=== PATIENT | male | born 1960 | race Caucasian/White ===

== ENCOUNTER → 2024-12-23 06:56 | Outpatient (REF) | payer OTHER, SELFPAY | LOC: PAVMRI 06:56 | PROVIDERS: ATTENDING PHYSICIAN Specialist; FAMILY PHYSICIAN Internal Medicine | DX: M25.562 Pain in left knee (principal); M17.12 Unilateral primary osteoarthritis, left knee | CPT/HCPCS: 73721 ==

== ENCOUNTER 2025-03-23 16:51 | Inpatient (IN) | payer OTHER, SELFPAY ==
[2025-03-23] VITALS (9 sets, daily range): BP systolic 97–154; BP diastolic 66–95; PULSE 90–104; BMI 33.9
[2025-03-23 13:58] LABS: Hematocrit 37.9 % (39.0-52.0); Hemoglobin 13.2 g/dL (13.0-18.0); Mean Corp Hgb Conc. 34.8 g/dL (33.0-37.0); Mean Corpuscular Volume 91.5 fL (80.0-94.0); Nucleated Red Blood Cells % 0 % (-); Platelet Count 213 10^3/uL (130-400); Red Cell Dist. Width 12.1 % (11.5-14.5)
[2025-03-23 14:10] LABS: ALT (SGPT) 60 U/L (0-50); AST (SGOT) 53 U/L (17-59); Albumin 4.3 g/dl (3.5-5.0); Alkaline Phosphatase 61 U/L (38-126); Blood Urea Nitrogen 42 mg/dl (9-20); Calcium 9.8 mg/dl (8.4-10.2); Carbon Dioxide 25 mmol/L (22-30); Chloride 102 mmol/L (98-107); Estimated Creatinine Clearance 53 ml/min; Glucose 90 mg/dl (70-99); Potassium 4.6 mmol/L (3.5-5.1); Sodium 135 mmol/L (135-145); Total Protein 7.7 g/dl (6.3-8.2); eGFR 44.74
--- NOTE | 2025-03-23 14:30 | ED.GENMED ---
History of Present Illness
General
Chief Complaint: Heart Rate Problem
Source: patient, records and spouse
Exam Limitations: none
Time Seen by Provider: 03/23/25 14:11
Nursing documentation reviewed up to this point in time: agreed with
History of Present Illness
History of Present Illness:
64 male presents with fatigue, dizziness, low blood pressure since yesterday-watch that his heart rate was slow but here he is in fast A-fib history of PAF on Eliquis has missed about 5 doses in the past month, also on metoprolol for an JANESSA
inhibitor he believes he has not had his metoprolol for some time he is unsure if there is a mistake at the pharmacy, recently started a GLP-1, and on for a few months has lost some weight he has had stents x 2 states he had indigestion and states
his symptoms are different has had some slow urinary stream, but no decreased urination no fevers no flank pain no chest pain no shortness of breath
Past History
Past History
ED Past Medical History: Arrthythmia, CAD and HTN
Social History
Tobacco: Smoker
Alcohol: Occasional
Drug: None
Personal:
Living: with family
Employment: Employed
Review of Systems
Review of Systems
All Other Systems: Not applicable
Constitutional: Reports fatigue; Denies fever
EENT: Reports no symptoms
Respiratory: Reports no symptoms
Cardiac: Reports palpitations
ABD/GI: Reports no symptoms
: Denies difficulty voiding or bleeding
Musculoskeletal: Reports no symptoms
Skin: Reports no symptoms
Neurological: Reports weakness
Psychiatric: Reports no symptoms
Phy Exam
Physical Exam
Physical Exam:
Physical Exam
General: no apparent distress, not acutely ill
Neck: No jaundice
Heart: ear regular
Lungs: no acute respiratory distress. clear bilaterally
Abdomen: Nontender
Neuro: alert and oriented. no focal neurological deficits
Skin: no rash
Psychiatric: well kept. interactive and cooperative
Extremities: no edema. no calf tenderness.
Course
Orders/Labs/Results
Orders:
Orders
03/23/25 12:30
Electrocardiogram (*1) Urgent
Reason for Study: Bradycardia / Tachycardia
EKG- Treatment ONCE
03/23/25 13:48
Complete Blood Count/With Diff Urgent
Comprehensive Metabolic Panel Urgent
Troponin I Urgent
03/23/25 14:28
Bladder Scan- Treatment ONCE
CR Chest - 2 Views Urgent
Comment:
Reason For Exam: faiture
03/23/25 14:29
0.9% Sodium Chloride 1000 ml [Nss] 1,000 ml IV BOLUS
Renal & Bladder US [US Renal With Bladder] Urgent
Comment:
Reason For Exam: kaitlin
03/23/25 15:10
CARDIOLOGY CONSULT Routine
Consulting Provider: Lj Monterroso
Was physician already notified: Yes
NEPHROLOGY CONSULT Routine
Consulting Provider: Jesús Myers
Was physician already notified: Yes
03/23/25 15:[address] Non Medication Order As Directed
Physician Order: NOTIFY MD WHEN MED REC DONE
Above order entered?: Yes
03/23/25 15:26
Bladder Scan As Directed
Follow Bladder Retention/Intermittent Cath Algorithm?: Yes
PRN if no void in __ hours: 6
Frequency: Per Retention Algorithm
If Bladder Scan Result >: 400
then:: Straight cath
Straight Cath As Directed
Frequency: Per Retention Algorithm
Additional Instructions: straight cath as needed per acute urinary retention algorithm for 24 hrs
Additional Instructions: for bladder scan greater than 400 mL
03/23/25 16:08
Urinalysis Reflex To Culture Routine
Date Specimen was Collected: 03/23/25
Time Specimen was Collected: 16:05
Urine Creatinine Routine
Date Specimen was Collected: 03/23/25
Time Specimen was Collected: 16:05
Urine Microscopic Reflex Cult Routine
Urine Sodium Routine
Date Specimen was Collected: 03/23/25
Time Specimen was Collected: 16:05
03/23/25 16:32
Admit/Transfer Patient As Directed
Co-Sign Provider:
Level of Care: Inpatient admission
Assign to:: Telemetry
Physician / Group: feliberto marrero
Diagnosis: dizziness,afib,KAITLIN
Reason for Telemetry: Arrhythmia
Date to Stop Telemetry: 03/26/25
Time to Stop Telemetry: 11:00
Reason for Hospitalization: dizziness,afib,KAITLIN
Expected length of stay greater than two midnights?: Yes
ELOS- Estimated Length of Stay in days: 3
I certify the patient meets the requirements for IP care: Yes
PRN Pain Medication Management As Directed
May give lesser potent ordered pain med per pt: Yes
preference::
Protocol:: Medication orders for pain may be administered in a
manner that supports deferring to patient preference
when the pt is:
- Requesting an ordered lesser potent pain medication.
Least to most potent pain medications are defined
as: acetaminophen < NSAID < tramadol < opioids
(morphine, oxycodone, hydromorphone).
- Requesting a lesser dose of the same medication IF
ORDERED.
- Requesting a less intrusive route of administration
if both routes are prescribed by the provider (PO <
IV).
03/23/25 16:35
Code Status As Directed
Resuscitation Status: Full Code
03/24/25 06:00
Echo 2D MMode Color/Doppler [Echo 2D MMode Color/Doppler] IN AM
Reason for Study: afib
03/26/25 11:00
DC Protocol for Telemetry ONCE
Abnormal Lab Results
03/23/25 03/23/25
13:48 16:08
RBC 4.14 L 10^6/uL
(4.70-6.10)
Hct 37.9 L %
(39.0-52.0)
MCH 31.9 H pg
(27.0-31.0)
Absolute Lymphs (auto) 1.1 L 10^3/uL
(1.2-3.4)
Absolute Monos (auto) 0.9 H 10^3/uL
(0.1-0.6)
Lymphocytes % 12.7 L %
(20.5-51.1)
Monocytes % 10.6 H %
(1.7-9.3)
BUN 42 H mg/dl
(9-20)
Creatinine 1.7 H mg/dL
(0.7-1.3)
Total Bilirubin 1.7 H mg/dl
(0.2-1.3)
ALT 60 H U/L
(0-50)
Urine Ketones 1+ A
(Negative)
Urine Bacteria (Reflex) Few A
(Negative)
Urine Sodium 100 H mmol/L
(30-90)
Urine Albumin (Reflex) 1+ A
(Neg - Trace)
03/23/25 13:48
03/23/25 13:48
Vital Signs
Initial and Last Documented VS:
Initial Vital Signs
Temp Pulse Resp BP Pulse Ox
97.7 F 81 16 135/69 98
03/23/25 12:33 03/23/25 12:33 03/23/25 12:33 03/23/25 12:33 03/23/25 12:33
Last Documented Vital Signs
Temp Pulse Resp BP Pulse Ox
97.7 F 107 23 133/75 100
03/23/25 12:33 03/23/25 17:30 03/23/25 17:30 03/23/25 17:30 03/23/25 14:45
MDM/Problems Addressed
Differential Diagnosis Includes:
A-fib electrolyte abnormality KAITLIN conceivably pneumonia UTI
MDM/Problems Addressed:
Fatigue
Chronic conditions affecting care: HTN, CAD and Arrhythmia
Acute Exacerbation and/or Progression of Chronic Illness: HTN, CAD and Arrhythmia
*Pulse Oximetry
SaO2: 100
Oxygen Mode of Delivery: Room air
Patient hypoxic: no
*Critical Care Note
Total Time (30-74mins, 75-104mins- exclusive of procedures): Not Applicable
Update Note
Update Note:
3 PM patient with KAITLIN A-fib noncompliant with his Eliquis, has not had metoprolol in a month perhaps a pharmacy mistake or patient here, combination it would be reasonable to keep in over the hospital overnight, IV fluids renal ultrasound specialty
consultation and consideration for LESA cardioversion
ED Attending Note
-
Portions of this chart may have been created with voice recognition software.� Occasional wrong word or��sound alike� substitutions may have occurred due to the inherent limitations of voice recognition software.
Discharge Plan
Departure
Patient Disposition: Admit
Date of Disposition: 03/23/25
Time of Disposition: 15:38
Admit to: Telemetry
Presentation/result/management discussed w/ accepting MD/DO: Hospitalist
Patient with high blood pressure during this ER visit?: No
Condition: Fair
Discharge Problem:
KAITLIN (acute kidney injury), Atrial fibrillation with RVR
Interventions
Interventions:
*Risk Screen - Suicide Last Done: 03/23/25 12:33
*General Assessment Last Done: 03/23/25 13:40
*Neglect/Abuse Screening Last Done: 03/23/25 12:33
*ED- Fall Risk Assessment Last Done: 03/23/25 13:40
*ED COVID-19 Vaccine History Last Done: 03/23/25 13:40
ED- Cardiac Assessment Last Done: 03/23/25 14:00
ED- Pulmonary Assessment Last Done: 03/23/25 14:00
[2025-03-23] MEDS: NSS 1000 IV ×3 (14:36→20:40)
[2025-03-23 15:18] LABS: Troponin I < 0.012 ng/ml
--- NOTE | 2025-03-23 15:19 | HPS.HSE ---
Family Physician
-
Family Physician: Don Mulligan
Chief Complaint
-
fatigue,dizziness
History of Present Illness
64yo Male with pmhx of par afib, HTN,CAD s/p stent,HLD came to the hospital with ongoing fatigue and weakness. Denies any chest pain, shortness of breath. Per patient his symptoms started yesterday when he was working in his garden. Reports he
has missed metoprolol since past month. Denies any sick contacts. Denies any fever/chills. Denies any abdominal pain, nausea, vomiting, diarrhea, constipation.
Medical History
Past Medical History
Past Medical History: Reports Arrhythmia (afib), CAD, HTN and Hypercholesterolemia
Past Surgical History: Reports Cardiac
Social History
Tobacco: Smoker
Alcohol: Occasional
Family History
Family History: Not pertinent
Allergies / Home Medications
Allergies reflects when Allergies were last updated in [facility].
Home Medications with original date entered in [facility]
Allergy/Medication List:
Allergies
Allergy/AdvReac Type Severity Reaction Status Date / Time
No Known Allergies Allergy Verified 03/23/25 12:33
Home Medications
aspirin 81 mg tablet,delayed release 81 mg PO DAILY Blood clot prevention/tx 04/05/22
atorvastatin 80 mg tablet 80 mg PO DAILY High cholesterol 04/05/22
clopidogrel 75 mg tablet 75 mg PO DAILY #90 tabs 04/05/22
lisinopril 20 mg-hydrochlorothiazide 12.5 mg tablet 1 tab PO DAILY Blood pressure 04/05/22
multivitamin 1 tab PO DAILY Supplement 04/05/22
nitroglycerin 0.4 mg sublingual tablet 0.4 mg sublingual [id number] PRN chest pain #25 tabs 04/05/22
omega-3 fatty acids 1,250 mg PO DAILY Supplement 04/05/22
apixaban 5 mg tablet (Eliquis) 5 mg PO BID #60 tabs 04/14/23
metoprolol tartrate 25 mg tablet 25 mg PO DAILY #14 tabs 04/14/23
Medications on admission are unable to be verified or confirmed at this time.
Review of Systems
-
History Source: Patient
A 12 point ROS was completed and negative except as noted: Yes
Physical Exam
Vital Signs
Vital Signs
Temp Pulse Resp BP Pulse Ox
97.7 F 99 18 126/88 100
03/23/25 12:33 03/23/25 15:11 03/23/25 15:11 03/23/25 15:10 03/23/25 14:45
Physical Exam
General: Well Nourished and No Apparent Distress
HEENT: Anicteric and Moist mucous membranes
Respiratory: Clear and Non Labored Respirations; No Wheezes
Cardiac: S1/S2, Irregular Rhythm and Tachycardia
Breast: Deferred by me
GI: Soft, Non Tender, Non Distended and Normal Bowel Sounds
Rectal: Deferred by Provider
Genito-urinary: No Wilkes
Musculoskeletal: No Edema
Neuro: Awake, Alert and Oriented
Psych: Calm and Intact Judgment/Insight
Laboratory Results
-
03/23/25 13:48
03/23/25 13:48
Laboratory Results
Total Bilirubin 1.7 mg/dl (0.2-1.3) H 03/23/25 13:48
AST 53 U/L (17-59) 03/23/25 13:48
ALT 60 U/L (0-50) H 03/23/25 13:48
Alkaline Phosphatase 61 U/L (38-126) 03/23/25 13:48
Troponin I < 0.012 ng/ml 03/23/25 13:48
Data Reviewed
-
Lab Data: Labs Reviewed by me, Discussed with Patient and Discussed with Family
Impression/Plan
-
Afib with RVR
hx of par afib
has missed few doses of eliquis past month; likely will need TEECV
cardiology consulted
check echo
monitor HR; already improving after fluid resuscitation. if uncontrolled then will start gtt
cw PO metoprolol for now
check orthos
Suspect KAITLIN, no history of CKD
check renal US
hold aceinh/HCTZ, per patient dose increased at his last visit 5 months ago by cardiology
gentle hydration
Ua with ketones
nephrology consulted in ed
check renal lytes
bladder scan
hx of CAD s/p stent
cw aspirin
Hx of HTN
hold HCTZ/aceinh
Hx of HLD
cw statin,zetia
DVTppx
eliquis
Full code
I spent a total of 76 minutes with the patient or on the floor. More than 50% of this time involved counseling and coordination of care.
[2025-03-23 16:21] LABS: Urine Character Clear (Clear)
[2025-03-23 16:32] LABS: Urine Squamous Cell 0-2 /LPF (Few); Urine Urothelial Cell 0-2 /LPF (FEW)
--- NOTE | 2025-03-23 16:32 | W.CON.NEPH ---
Consultation
-
Date/Time Consultation Requested: 03/23/2025 4 PM
Date/Time Consultation Performed: 03/23/2025 4 PM
Requesting Provider: Dr. Mccrary
Performing Provider: Dr. Myers
Reason for Consultation: KAITLIN
Medical History
-
Chief Complaint: Dizziness
History of Present Illness:
64-year-old gentleman with atrial fibrillation on anticoagulation with Eliquis though he has missed a few doses in the last month. He was rate controlled with beta-shana therapy. He noticed that he has not had metoprolol for the last 6 weeks. He
has hypertension modestly controlled on a multidrug regimen with hyperlipidemia stable on statin therapy and Zetia. He says that his lisinopril HCTZ was doubled about 6 months ago. He checks his blood pressures at home occasionally and the
averages 130�140 systolic. The last couple days he has been working in the house and in the yard and has noticed that every time he is looking upwards and working with something above his head he does develop some dizziness. He has no issues
bending squatting. He checked his blood pressure yesterday and noted that it was 113 systolic. He has also had significant fatigue as well. He came to the emergency room because of fatigue and dizziness and hypotension. He recently started
tirzepatide 7 weeks ago. He has had no issues with this medication.
Past Medical History
Atrial fibrillation
Hyperlipidemia
CAD/PCI 2022
GERD
Hypertension
Social History
Tobacco: Former Smoker
Alcohol: None
Family History
Family History: Not Pertinent
Allergies / Home Medications
Allergy/AdvReac Type Severity Reaction Status Date / Time
No Known Allergies Allergy Verified 03/23/25 12:33
�Medication �Instructions �Recorded �Confirmed �Type
aspirin 81 mg tablet,delayed 81 mg PO DAILY Blood clot 04/05/22 03/23/25 History
release prevention/tx
atorvastatin 80 mg tablet 80 mg PO DAILY High cholesterol 04/05/22 03/23/25 History
lisinopril 20 1 tab PO DAILY Blood pressure 04/05/22 03/23/25 History
mg-hydrochlorothiazide 12.5 mg
tablet
apixaban 5 mg tablet (Eliquis) 5 mg PO BID #60 tabs 04/14/23 03/23/25 Rx
ezetimibe 10 mg tablet (Zetia) 10 mg PO DAILY 03/23/25 03/23/25 History
metoprolol succinate 25 mg 25 mg PO DAILY 03/23/25 03/23/25 History
tablet,extended release 24 hr
(Toprol XL)
Review of Systems
-
All other systems: Negative unless noted
Physical Exam
Vital Signs
Vital Signs
Temp Pulse Resp BP Pulse Ox
97.7 F 99 18 126/88 100
03/23/25 12:33 03/23/25 15:11 03/23/25 15:11 03/23/25 15:10 03/23/25 14:45
Lab Results
WBC 8.7 10^3/uL (4.8-10.8) 03/23/25 13:48
RBC 4.14 10^6/uL (4.70-6.10) L 03/23/25 13:48
Hgb 13.2 g/dL (13.0-18.0) 03/23/25 13:48
Hct 37.9 % (39.0-52.0) L 03/23/25 13:48
Plt Count 213 10^3/uL (130-400) 03/23/25 13:48
Sodium 135 mmol/L (135-145) 03/23/25 13:48
Potassium 4.6 mmol/L (3.5-5.1) 03/23/25 13:48
Chloride 102 mmol/L (98-107) 03/23/25 13:48
Carbon Dioxide 25 mmol/L (22-30) 03/23/25 13:48
BUN 42 mg/dl (9-20) H 03/23/25 13:48
Creatinine 1.7 mg/dL (0.7-1.3) H 03/23/25 13:48
eGFR 44.74 03/23/25 13:48
Glucose 90 mg/dl (70-99) 03/23/25 13:48
Calcium 9.8 mg/dl (8.4-10.2) 03/23/25 13:48
Albumin 4.3 g/dl (3.5-5.0) 03/23/25 13:48
08/17/2024 creatinine 1.07, potassium 4.7
Data Reviewed
-
Radiology: Image Personally Visualized and interpreted (Chest x-ray 03/23/2025 by my reading no acute disease)
Ultrasound: Report Reviewed by me (Renal ultrasound 03/23/2025 right kidney 11.2 cm left kidney 11 cm no hydronephrosis)
Medical Tests (Nuc Med, Echo etc): Image Personally Visualized and interpreted (EKG 03/23/2025 by my read atrial fibrillation rapid ventricular rate)
Labs: Labs Reviewed by me
Old Records: Reviewed
Assessment/Plan
-
Assessment
KAITLIN
Hypertension, now relative hypotension
CAD
A-fib
Dizziness
Plan
second liter IV fluids
Urine studies may simply be consistent with diuretic usage
Is also possible that his elevated creatinine is due to the doubling of his lisinopril HCTZ 6 months ago. I do not see blood work since doubling to confirm that this may have been drug effect
Hold lisinopril HCTZ
Restart beta-shana, may add calcium channel shana if needed for hypertension in the interim time
Follow BMP
[2025-03-23 16:33] LABS: Urine Red Blood Cell 0-2 /HPF (0-2); Urine White Cell 0-2 /HPF (0-5)
[2025-03-23] MEDS: CARDIZEM 5 MG IV (17:30)
--- NOTE | 2025-03-23 18:45 | PTCARENOTE ---
pt arrived to [facility] [address] via stretcher, independent with ambulation to bed. denies complains, afib on telemetry, vss, will continue to monitor.
[2025-03-23] MEDS: ELIQUIS 5 MG PO (20:41)
[2025-03-24 03:12] VITALS: BP 115/74
[2025-03-24 06:00] VITALS: BMI 33.5
[2025-03-24 07:41] VITALS: BP 126/83
--- NOTE | 2025-03-24 08:06 | CON.CAR ---
Addendum entered and electronically signed by Gonzalo Mcgregor MD 03/24/25 09:37:
I saw and examined the patient.
The PHYSICIAN ALLERGIST IMMUNOLOGIST's note was reviewed and I agree with the note.
64-year-old male with history of coronary artery disease, distant history of coronary stenting(stenting of RCA 2012), PAF, hypertension, hypercholesterolemia who presented with fatigue and some dizziness and was noted to be in A-fib with RVR.
Patient has not been taking his metoprolol.. Labs also notable for KAITLIN with a creatinine of 1.7. Patient is maintained on anticoagulation with Eliquis but has missed some doses.
-A-fib
- [id number] 2 (hypertension and CAD)
- Continue anticoagulation Eliquis
- Improved rate control with use of beta-shana. Continue metoprolol.
- Eliquis 5 mg twice daily
- N.p.o. after midnight. If patient does not spontaneously convert to sinus rhythm then would proceed with LESA cardioversion tomorrow
KAITLIN. Creatinine 1.7. May be multifactorial
- Lisinopril and HCTZ on hold.
- Nephrology following
CAD. Distant history of RCA stenting. Stable without angina continue medical therapy
Original Note:
Consultation
Consultation Request
Date/Time Consultation Requested: 03/23/25 1510
Date/Time Consultation Performed: 03/24/25 0813
Requesting Provider: Dr. Myles
Performing Provider: Pat LEES for Dr. Mcgregor
Reason for Consultation: AFIB
Medical History
-
Chief Complaint: 'feeling drained' and dizzy
History of Present Illness:
64 y/o male (patient of Dr. Schwarz) with CAD with hx IMI 2012 (PCI with BMS), then MARQUIS to RCA in 2021, dyslipidemia, PAF on Eliquis, resolved ICM who is here for evaluation of feeling drained and dizzy over the weekend. He came in and was in afib
with RVR. He realized he has accidentally not been taking his metoprolol for about 6 weeks. He was also seen to have KAITLIN and nephro is on the case. He had 2 L of IVF and labs this AM are pending. He is feeling well this AM.
Past Medical History
Past Medical History: Arrhythmias, CAD and Hypercholesterolemia
Social History
Tobacco: Former Smoker
Family History
Family History: CAD (dad, CAD age 55)
Allergies / Home Medications
Allergy/AdvReac Type Severity Reaction Status Date / Time
No Known Allergies Allergy Verified 03/23/25 18:42
�Medication �Instructions �Recorded �Confirmed �Type
aspirin 81 mg tablet,delayed 81 mg PO DAILY Blood clot 04/05/22 03/23/25 History
release prevention/tx
atorvastatin 80 mg tablet 80 mg PO DAILY High cholesterol 04/05/22 03/23/25 History
lisinopril 20 2 tab PO DAILY Blood pressure 04/05/22 03/23/25 History
mg-hydrochlorothiazide 12.5 mg
tablet
apixaban 5 mg tablet (Eliquis) 5 mg PO BID #60 tabs 04/14/23 03/23/25 Rx
ezetimibe 10 mg tablet (Zetia) 10 mg PO DAILY 03/23/25 03/23/25 History
metoprolol succinate 25 mg 25 mg PO DAILY 03/23/25 03/23/25 History
tablet,extended release 24 hr
(Toprol XL)
Review of Systems
-
History Source: Patient
All other systems: Negative unless noted
Constitutional: Fatigue
Neurological: Dizzy
Physical Exam
Vital Signs
Temp Pulse Resp BP Pulse Ox
97.6 F 80 18 126/83 98
03/24/25 07:41 03/24/25 07:41 03/24/25 07:41 03/24/25 07:41 03/24/25 07:41
Lab Results
Troponin I < 0.012 ng/ml 03/23/25 13:48
Physical Exam
General: Well Developed, Well Nourished and No Apparent Distress
HEENT: Normocephalic and Anicteric
Respiratory: Clear and Non Labored Respirations
Cardiac: Irregular Rhythm
Musculoskeletal: No Edema
Skin: Warm and Dry
Neuro: AO x 3
Psych: Calm
Impression / Plan
-
AFIB, has been paroxysmal (but currently unclear how long he has been in AFIB, so possibly persistent):
-rates improved with a single dose of IV diltiazem, as well as IVF
-he has not been taking metoprolol for 6 weeks (by accident). This has been resumed starting this AM- continue metoprolol 25 mg PO daily and monitor telemetry.
-Continue Eliquis 5 mg PO BID. He has occasionally missed some doses. Plan for LESA/CV in AM (provided that KAITLIN has resolved), if remains in AFIB. We discussed these procedures.
-TTE and TSH are pending
CAD with hx stenting:
-stable without CP, trop WNL
-on ASA and statin, as well as BB
KAITLIN:
-nephro is on the case
-ACEI/HCTZ held
-fluids given
-awaiting AM labs
HLD:
-continue statin
Data Reviewed
-
EKG: Tracing Personally Visualized and interpreted (AFIB with RVR 115 BPM)
Radiology: Report Reviewed by me (CXR: No acute cardiopulmonary abnormality.)
Medical Tests (Nuc Med, Echo etc): Report Reviewed by me (echo 05/10/23: Normal left ventricular size, wall thickness and systolic function. LV ejection fraction is 55-60%. No significant valvular disease. )
Labs: Labs Reviewed by me
[2025-03-24] MEDS: TOPROL XL 25 MG PO (09:10)
[2025-03-24] MEDS: ZETIA 10 MG PO (09:11)
[2025-03-24] MEDS: LIPITOR 80 MG PO (09:11)
[2025-03-24] MEDS: ELIQUIS 5 MG PO ×2 (09:11→19:47)
[2025-03-24] MEDS: ASPIR LOW (ENTERIC COATED) 81 MG PO (09:12)
--- NOTE | 2025-03-24 09:21 | W.PN.HOSP.TC ---
Today's Communication/Plan
-
see PN
Assessment / Plan
Assessment / Plan
64yo M with PMXH of CAD s/p PCI, AFib, HLD, HTN came with dizziness and fatigue, noticed to be in Afib with RVR. He stopped his Toprol 1 month ago since missed his refill. Improved on Cardizem. Cardiology is planning for possible CV
A/P:
#Paroxsmal Afib with RVR
cont ELiquis
Rate control
Cardizem PRN
Echo
telemetry
check TSH
Cardiology consult: plan for LESA/CV
#KAITLIN
Cr baseine 0.8
Most likely 2/2 recently increased Lisinopril and HCTZ - hold both meds
Nephroloist conault
Serial BMP
#Bilirubinemia
#chronic ALT elevation
check direct bili, LDH, retics, HepC Ab
follow LFT
#CAD s/p PCI
#HLD
#Essential HTN
cont home meds
adjust BP meds in view of KAITLIN
#Obesity
BMI 33.4
decrease calorie intake
DVT ppx Eliquis
Full code
I have spent at least 52min reviewing chart, test results, communication with consultants and providing direct patient care
Anticipated Discharge: 24 - 48 hours
Subjective/Interval History
-
Date of Service: March 24, 2025
Objective Data
-
Labs:
Laboratory Results
03/24/25
08:50
WBC Pending
Hgb Pending
Hct Pending
Plt Count Pending
Sodium Pending
Potassium Pending
Chloride Pending
Carbon Dioxide Pending
BUN Pending
Creatinine Pending
Glucose Pending
Calcium Pending
Total Bilirubin Pending
AST Pending
ALT Pending
Alkaline Phosphatase Pending
Vital Signs:
Vital Signs
Temp Pulse Resp BP Pulse Ox
97.6 F 80 18 126/83 98
03/24/25 07:41 03/24/25 09:10 03/24/25 07:41 03/24/25 09:10 03/24/25 07:41
I&O
03/23/25 03/24/25 03/25/25
06:59 06:59 06:59
Intake Total 1959
Balance 1959
Review of Systems
-
History Source: Patient
All other systems: Reviewed and negative
Physical Exam
-
General: No Apparent Distress
HEENT: Normocephalic
Cardiac: Irregular Rhythm
GI: Soft, Nontender and Nondistended
Neuro: Awake, Alert, Oriented and AO x 3
Psych: Calm
[2025-03-24 09:28] LABS: Hematocrit 37.4 % (39.0-52.0); Hemoglobin 12.9 g/dL (13.0-18.0); Mean Corp Hgb Conc. 34.5 g/dL (33.0-37.0); Mean Corpuscular Volume 92.3 fL (80.0-94.0); Nucleated Red Blood Cells % 0 % (-); Platelet Count 187 10^3/uL (130-400); Red Cell Dist. Width 12.1 % (11.5-14.5)
[2025-03-24 09:58] LABS: ALT (SGPT) 60 U/L (0-50); AST (SGOT) 53 U/L (17-59); Albumin 4.1 g/dl (3.5-5.0); Alkaline Phosphatase 58 U/L (38-126); Blood Urea Nitrogen 31 mg/dl (9-20); Calcium 9.2 mg/dl (8.4-10.2); Carbon Dioxide 21 mmol/L (22-30); Chloride 106 mmol/L (98-107); Estimated Creatinine Clearance 81 ml/min; Glucose 112 mg/dl (70-99); LDH 160 U/L (120-246); Potassium 4.7 mmol/L (3.5-5.1); Sodium 136 mmol/L (135-145); Total Protein 7.4 g/dl (6.3-8.2); eGFR > 60.00
[2025-03-24 10:46] LABS: Reticulocyte Count 1.3 % (0.4-2.8)
[2025-03-24 11:15] VITALS: BP 127/81
--- NOTE | 2025-03-24 12:37 | W.PN.NEPH.PH ---
Today's Communication / Plan
-
Discontinue IV fluids
Assessment/Plan
-
Assessment
KAITLIN
Hypertension, now relative hypotension
CAD
A-fib
Dizziness
Plan
Urine studies may simply be consistent with diuretic usage
KAITLIN multifactorial A-fib with RVR in conjunction with increased glomerular modifying medication lisinopril/hydrochlorothiazide
Blood pressure stable on beta-shana only
Continue to hold lisinopril and hydrochlorothiazide for now
Pending LESA cardioversion tomorrow per cardiology
IV fluids discontinued creatinine normalized 1.1
-
-
Date of Service: March 24, 2025
CC / HPI / ROS
-
Chief Complaint:
Weakness
History of Present Illness:
Acute kidney injury with A-fib and RVR
Review of Systems:
No chest pain or shortness of breath
Labs
-
Labs:
WBC 5.5 10^3/uL (4.8-10.8) 03/24/25 08:50
RBC 4.05 10^6/uL (4.70-6.10) L 03/24/25 08:50
Hgb 12.9 g/dL (13.0-18.0) L 03/24/25 08:50
Hct 37.4 % (39.0-52.0) L 03/24/25 08:50
Plt Count 187 10^3/uL (130-400) 03/24/25 08:50
Sodium 136 mmol/L (135-145) 03/24/25 08:50
Potassium 4.7 mmol/L (3.5-5.1) 03/24/25 08:50
Chloride 106 mmol/L (98-107) 03/24/25 08:50
Carbon Dioxide 21 mmol/L (22-30) L 03/24/25 08:50
BUN 31 mg/dl (9-20) H 03/24/25 08:50
Creatinine 1.1 mg/dL (0.7-1.3) 03/24/25 08:50
eGFR > 60.00 03/24/25 08:50
Glucose 112 mg/dl (70-99) H 03/24/25 08:50
Calcium 9.2 mg/dl (8.4-10.2) 03/24/25 08:50
Albumin 4.1 g/dl (3.5-5.0) 03/24/25 08:50
Physical Exam
-
Vital Signs:
Vital Signs
Temp Pulse Resp BP Pulse Ox
98 F 96 18 127/81 98
03/24/25 11:15 03/24/25 11:15 03/24/25 11:15 03/24/25 11:15 03/24/25 11:15
Respiratory:: Bilateral: Coarse
Lung Excursion:: Normal
Abdomen:: Soft
Bowel Sounds:: Normal
Extremity Edema:: None: Bilateral:
Wilkes Catheter: No
[2025-03-24 15:15] VITALS: BP 117/74
--- NOTE | 2025-03-24 15:47 | CM ---
Addendum entered by Alicia Richard 03/24/25 16:02:
Plan for LESA cardioversion tomorrow per Cardiology. CM will follow to coordinate all discharge planning needs.
Original Note:
CM met with Odell this afternoon to obtain IA. Odell was admitted due to fatigue, dizziness and hypotension. He lives with his in [place]. He is independent with ambulation and adls.
[2025-03-24 19:24] LABS: Hepatitis C Antibody Negative (Negative)
[2025-03-24 19:25] VITALS: BP 122/64
[2025-03-24 23:12] VITALS: BP 110/68
[2025-03-25 03:14] VITALS: BP 97/62
[2025-03-25 06:00] VITALS: BMI 33.0
[2025-03-25] MEDS: ELIQUIS 5 MG PO (07:21)
--- NOTE | 2025-03-25 07:40 | W.PN.CD ---
Today's Communication / Plan
-
stop asa
continue eliquis
continue metoprolol
Impression / Plan
-
AFIB, has been paroxysmal (but currently unclear how long he has been in AFIB, so possibly persistent):
--s/p LESA/DCCV 03/25/25.
-he has not been taking metoprolol for 6 weeks (by accident). This has been resumed starting this AM- continue metoprolol 25 mg PO daily
-BP low normal will continue current dose
-Continue Eliquis 5 mg PO BID. He has occasionally missed some doses---expressed to need for compliance. .
-TSH normal
CAD with hx stenting:
-PCI 03/2022--OK to stop asa as on Eliquis
-stable without CP, trop WNL
-statin, as well as BB
KAITLIN:
-nephro is on the case
-ACEI/HCTZ held
-fluids given
-awaiting AM labs
HLD:
-continue statin
Physical Exam
Vital Signs/Labs
Vital Signs
Temp Pulse Resp BP Pulse Ox
98.6 F 77 16 97/62 99
03/25/25 03:14 03/25/25 03:14 03/25/25 03:14 03/25/25 03:14 03/25/25 03:14
03/24/25 03/25/25 03/26/25
06:59 06:59 06:59
Actual Weight 226 lb 7 oz 223 lb 5 oz
LAB Results
03/23/25
13:48
Troponin I < 0.012
Physical Exam
Constitutional: No acute distress
Cardiovascular: Rhythm & rate is regular, Pedal edema is absent, JVD pressure is normal, Systolic murmur absent and Diastolic murmur absent
Respiratory: Respiratory effort normal, Lungs clear to auscul., Wheeze Absent, Crackles Absent and Rhonchi Absent
GI: Soft
Neuro/Psych: AO x 3
Data Reviewed
-
Date of Service: March 25, 2025
--- NOTE | 2025-03-25 08:11 | ITS.CL.CARDI ---
[employer]ance [employer] - Cardioversion
Cardioversion
Procedure Report:
Date of Procedure: 03/25/2025.
Procedure: Cardioversion.
Indication: Symptomatic atrial fibrillation.
Performing Physician: Sara Sigala MD
Technique: The patient was brought to the holding area. Signed informed consent was obtained. A time out was called and performed. The patient was sedated by a member of the anesthesia service. Anticoagulation status was reviewed and was
appropriate. R-2 pads were placed anteriorly and posteriorly.LESA was performed and did not show evidence of intracardiac thrombus. A 200 J synchronized biphasic shock restored normal sinus rhythm without significant bradycardia. There were no
complications.
Conclusion: Uncomplicated cardioversion from atrial fibrillation to sinus rhythm.
Recommendation: Routine post cardioversion care. Continue local intermodal truck driver anticoagulation.
cc: soumya
[2025-03-25] MEDS: ASPIR LOW (ENTERIC COATED) PO (08:56)
[2025-03-25] MEDS: ZETIA 10 MG PO (09:00)
[2025-03-25] MEDS: LIPITOR 80 MG PO (09:00)
[2025-03-25] MEDS: TOPROL XL 25 MG PO (09:01)
[2025-03-25 09:04] VITALS: BP 116/65
[2025-03-25 09:07] VITALS: BP 116/65
--- NOTE | 2025-03-25 09:42 | W.PN.HOSP.TC ---
Today's Communication/Plan
-
dc
Assessment / Plan
Assessment / Plan
64yo M with PMXH of CAD s/p PCI, AFib, HLD, HTN came with dizziness and fatigue, noticed to be in Afib with RVR. He stopped his Toprol 1 month ago since missed his refill. Improved on Cardizem. Cardiology is did LESA with CV on 03/25/25 and patient
remained in SR. Cartdiologist recommended to cont Eliquis and Toprpl, but to stop ASA and further outpatient follow up. Medically stable for dc home. Instructed to follow kidney function in 2 weeks with PCP
A/P:
#Paroxsmal Afib with RVR
cont ELiquis
Rate control
Cardizem PRN
Echo: Overall preserved left ventricular systolic function with estimated ejection fraction of 50-55%. There is a focal area of inferolateral hypokinesis, new since 2022
telemetry with SR after CV
TSH WNL
Cardiology consult
#KAITLIN
Cr baseine 0.8
Most likely 2/2 recently increased Lisinopril and HCTZ - hold both meds - CR normalized. BP remained stable and well within normal limits.
[employer] consult: KAITLIN multifactorial A-fib with RVR in conjunction with increased glomerular modifying medication lisinopril/hydrochlorothiazide
#Bilirubinemia
#chronic ALT elevation
with normal LDH and retics- possible Ladi, also was counselled on alcohol cesation
follow LFT
#CAD s/p PCI
#HLD
#Essential HTN
cont home meds
adjust BP meds in view of KAITLIN
#Obesity
BMI 33.4
decrease calorie intake
DVT ppx Eliquis
Full code
I have spent at least 52min reviewing chart, test results, communication with consultants and providing direct patient care
Anticipated Discharge: Today
Subjective/Interval History
-
Date of Service: March 25, 2025
Objective Data
-
Labs:
Laboratory Results
03/25/25
06:00
WBC Cancelled
Hgb Cancelled
Hct Cancelled
Plt Count Cancelled
Sodium Cancelled
Potassium Cancelled
Chloride Cancelled
Carbon Dioxide Cancelled
BUN Cancelled
Creatinine Cancelled
Glucose Cancelled
Calcium Cancelled
Total Bilirubin Cancelled
AST Cancelled
ALT Cancelled
Alkaline Phosphatase Cancelled
Vital Signs:
Vital Signs
Temp Pulse Resp BP Pulse Ox
97.5 F 77 18 116/65 99
03/25/25 09:07 03/25/25 09:07 03/25/25 09:07 03/25/25 09:07 03/25/25 09:07
I&O
03/24/25 03/25/25 03/26/25
06:59 06:59 06:59
Intake Total 1959 1080 / 1080
Balance 1959 1080 / 1080
Review of Systems
-
History Source: Patient
All other systems: Reviewed and negative
Physical Exam
-
General: No Apparent Distress
Neuro: Awake, Alert, Oriented and AO x 3
Psych: Calm
--- NOTE | 2025-03-25 09:49 | W.DCSUMMARY ---
Discharge Summary
Discharge Data
Date of Admission: 03/23/25
Date of Discharge: 03/25/25
-
Pending Results: No
Hospital Course
64yo M with PMXH of CAD s/p PCI, AFib, HLD, HTN came with dizziness and fatigue, noticed to be in Afib with RVR. He stopped his Toprol 1 month ago since missed his refill. Improved on Cardizem. Cardiology is did LESA with CV on 03/25/25 and patient
remained in SR. Director [employer] recommended to cont Eliquis and Toprol, but to stop ASA and further outpatient follow up. Medically stable for dc home. Instructed to follow kidney function in 2 weeks with PCP
I have spent at least 52min reviewing chart, test results, communication with consultants and providing direct patient care
Patient was managed for:
#Paroxsmal Afib with RVR
#KAITLIN
#Bilirubinemia
#chronic ALT elevation
#CAD s/p PCI
#HLD
#Essential HTN
#Obesity
Discharge Plan
-
Patient Disposition: Home (Routine Discharge)
Discharge Diagnosis/Procedures: Afib with RVR
Diet: Low Cholesterol
Blood Work: BMP in 2 weeks with family doctor
Referrals:
Don Mulligan DO [Family Provider, Internal Medicine] - in one to two weeks
Referral Note: BMP
Lj Monterroso MD [Active, Cardiology] - in one to two weeks
Prescriptions:
Continued
atorvastatin 80 mg Tablet
80 mg PO DAILY
Eliquis 5 mg tablet
5 mg PO BID Qty: 60 0RF
metoprolol succinate [Toprol XL] 25 mg Tablet Extended Release 24 Hr
25 mg PO DAILY
ezetimibe [Zetia] 10 mg Tablet
10 mg PO DAILY
Discontinued
lisinopril-hydrochlorothiazide 20-12.5 mg Tablet
2 tab PO DAILY
aspirin 81 mg Tablet,Delayed Release (Dr/Ec)
81 mg PO DAILY
Discharge Orders:
Discharge Patient (As Directed); Ordered 03/25/25
Ordered By: Daniel Key
Discharge Date and Time
Print Language: MARTINIQUAIS
[2025-03-25 10:53] VITALS: BP 144/77
--- NOTE | 2025-03-25 11:21 | CM ---
Addendum entered by Alicia Richard 03/25/25 11:35:
Eliquis 30 day Copay card provided to patient. He is not sure if he has used previously, but will show to the pharmacy to see if he is eligible to use it.
Original Note:
CM continues to follow for discharge planning needs. Routine cardioversion completed and Odell is cleared for discharge to home today with no needs.
== END 2025-03-25 12:24 | disposition home or self-care (01) | DRG 309 ==
LOC: 3 WEST ACU 16:51
PROVIDERS: Emergency Medicine; Internal Medicine Cardiovascular Disease; ADMITTING PHYSICIAN Internal Medicine; ATTENDING PHYSICIAN Internal Medicine; CONSULT PHYSICIAN Specialist; EMERGENCY PHYSICIAN Emergency Medicine; FAMILY PHYSICIAN Internal Medicine; OTHER PHYSICIAN Internal Medicine Cardiovascular Disease
PROC: B24BZZ4 Ultrasonography of Heart with Aorta, Transesophageal (ICD-10-PCS; 2025-03-25)
PROC: 5A2204Z Restoration of Cardiac Rhythm, Single (ICD-10-PCS; 2025-03-25)
DX: I48.0 Paroxysmal atrial fibrillation (principal); N17.9 Acute kidney failure, unspecified; R42 Dizziness and giddiness; I10 Essential (primary) hypertension; I25.10 Atherosclerotic heart disease of native coronary artery without angina pectoris; F17.200 Nicotine dependence, unspecified, uncomplicated; E78.00 Pure hypercholesterolemia, unspecified; I95.9 Hypotension, unspecified; K21.9 Gastro-esophageal reflux disease without esophagitis; E66.9 Obesity, unspecified; R74.01 Elevation of levels of liver transaminase levels; Z68.33 Body mass index [BMI] 33.0-33.9, adult; Z79.82 Long term (current) use of aspirin; Z79.01 Long term (current) use of anticoagulants; Z82.49 Family history of ischemic heart disease and other diseases of the circulatory system; Z79.85 Long-term (current) use of injectable non-insulin antidiabetic drugs; Z91.148 Patient's other noncompliance with medication regimen for other reason; Z95.5 Presence of coronary angioplasty implant and graft
CPT/HCPCS: 71046; 76770; 80053; 81003; 81015; 82248; 82570; 83615; 84300; 84443; 84484; 85025; 85045; 86803; 92960; 93005; 93306; 93312; 93320; 93325; 96360; 99285

== ENCOUNTER 2025-06-17 05:54 | Day surgery (SDC) | payer OTHER, SELFPAY ==
[2025-06-04 13:18] VITALS: BMI 32.9
[2025-06-04 13:28] LABS: Hematocrit 40.9 % (39.0-52.0); Hemoglobin 14.2 g/dL (13.0-18.0); Mean Corp Hgb Conc. 34.7 g/dL (33.0-37.0); Mean Corpuscular Volume 92.1 fL (80.0-94.0); Nucleated Red Blood Cells % 0 % (-); Platelet Count 208 10^3/uL (130-400); Red Cell Dist. Width 13.2 % (11.5-14.5)
[2025-06-04 13:52] LABS: ALT (SGPT) 54 U/L (0-50); AST (SGOT) 52 U/L (17-59); Albumin 4.4 g/dl (3.5-5.0); Alkaline Phosphatase 78 U/L (38-126); Blood Urea Nitrogen 13 mg/dl (9-20); Calcium 9.2 mg/dl (8.4-10.2); Carbon Dioxide 30 mmol/L (22-30); Chloride 101 mmol/L (98-107); Estimated Creatinine Clearance 97 ml/min; Glucose 98 mg/dl (70-99); Potassium 4.0 mmol/L (3.5-5.1); Sodium 137 mmol/L (135-145); Total Protein 7.8 g/dl (6.3-8.2); eGFR > 60.00
[2025-06-17] VITALS (12 sets, daily range): BP systolic 91–154; BP diastolic 54–104; BMI 32.9
[2025-06-17 08:33] LABS: ACT-LR - POC 379 Seconds (116-155)
[2025-06-17 08:51] LABS: ACT-LR - POC 342 Seconds (116-155)
[2025-06-17 09:10] LABS: ACT-LR - POC 319 Seconds (116-155)
--- NOTE | 2025-06-17 09:29 | ITS.CL.ABL ---
Trimming Cutter Machine - Ablation
Ablation
Procedure Report:
AFIB ablation:
Mr. Aranda is a very pleasant 64 yr old gentleman with symptomatic persistent AF, is recommended for atrial fibrillation ablation.
Date of the Procedure:
06/17/2025
Indications:
Persistent atrial fibrillation
Pre-Operative Diagnosis:
Persistent atrial fibrillation
Post-Operative Diagnosis:
Persistent atrial fibrillation
Procedure Performed:
Atrial fibrillation ablation with Pulsed-Field approach for pulmonary vein isolation
Posterior wall isolation
Performing Physician:
Farnaz Beltre MD
Assistants:
EP staff
Anesthesia:
See anesthesia records
Detailed Description of the Procedure:
Written informed consent was obtained from the patient after a full explanation of the risks and benefits of the procedure including the risks of sedation and anesthesia.
The patient was brought to the electrophysiology laboratory in stable condition in fasting state. Continuous electrocardiographic and hemodynamic monitoring was initiated.
The initial rhythm was atrial fibrillation.
The procedure site was meticulously prepared with surgical scrub and allowed to dry with no pooling. Sterile draping was applied to cover the procedure site. The image intensifier was draped with sterile bag and positioned over the patient. After
infusion of local anesthetic, vascular access was obtained under ultrasound guidance and sheaths were placed over guide wire as detailed below.
Sheath and Catheter Placement:
The following catheters / sheaths were placed
Sheaths:
17Fr steerable sheath ([employer]�, [employer]) in right femoral
9Fr in right femoral vein
Catheters:
TIFFANY HD Grid mapping catheter � at locations of RA, LA
Farawave� PFA catheter
ICE catheter -AcuNav - at locations of RA, SVC, and RV.
Intracardiac ECHO:
An 8-[place] Islander AcuNav intracardiac ECHO (ICE) probe was advanced through the 9-[place] Islander sheath in the right femoral vein into the right atrium under fluoroscopic and ICE ultrasound image guidance and a baseline ECHO study was performed. The left atrial
size was dilated. There was moderate tricuspid regurgitation. The aortic valve was grossly normal. There was normal left ventricular systolic functions. There is no pericardial effusion. All the four veins were identified and has flow identified.
There was sluggish flow noted in the ROME.
During the procedure, ICE was used for monitoring of complications, guidance of trans-septal puncture, monitor the catheter position and tracking ablation lesions. No change in the pericardial space noted throughout the procedure.
Trans-septal Puncture:
Heparin was initiated and infused to maintain appropriate ACT. A pigtail guidewire was advanced through the 8-[place] Islander sheath in the right femoral vein into the superior vena cava under fluoroscopic and ICE guidance. The 9-[place] Islander sheath was exchanged
for a Faradrive sheath which was advanced into the superior vena cava. A transseptal VersaCross RF pigtail via Faradrive connect system was utilized to perform the trans-septal puncture. The apparatus was withdrawn until it was in contact with the
fossa ovalis. The position was adjusted based on fluoroscopy and ultrasound images from ICE. Under fluoroscopic, hemodynamic and ICE ultrasound guidance, left atrium was cannulated by applying RF energy. Once atrial septum was cannulated, the
pigtail wire was advanced into the left atrium. The guide wire was advanced into the left superior pulmonary vein. Both the sheath and the dilator was advanced into the left atrium. The dilator with the needle was withdrawn. Blood was aspirated from
the Faradrive sheath and arterial blood confirmed. The sheath was flushed. Saline injection noted into the left atrium on ICE. The mapping catheter was advanced in the sheath into the left pulmonary vein. Left atrial pressure was measured.
3D Electroanatomic Mapping:
Using the HD Grid catheter advanced through sheath into the left atrium, an electroanatomic map (EAM) of the left atrium was created using [employer] mapping system. The map was used for localization of catheter position and tacking of ablation
lesions.
The EAM of the left atrium showed 4 pulmonary veins (2 right sided and 2 left sided) with all veins electrically connected to the body the LA. It showed scattered areas of low voltage on the posterior of the LA. The LA was dilated in size.
Following the EAM, preparation were made for ablation.
Ablation:
Ablation # 1: Pulmonary vein Isolation:
Glycopyrrolate 0.2 mg was given prior to the placement of ablation. Using [employer] pulsed field ablation system, pulmonary vein isolation was achieved. First the ablation catheter was placed in the LSPV and ostial ablation lesions were performed in
an �Jemison� formation of the Farawave configuration and a counter clock naylor rotation was done and ablated to cover the area between the electrodes. Then the catheter was placed on the antral location in �Flower� configuration and multiple ablation
lesions were placed circumferentially on the antrum of the vein.
In the similar fashion, the LIPV were isolated.
Then the catheter was moved to right sided veins. The ostial and antral ablations were placed as noted above.
Patient remained in atrial fibrillation.
Ablation # 2: Posterior wall isolation:
Using the pulsed field ablation catheter, the catheter was placed between left superior pulmonary vein and right severe pulmonary vein with series of overlapping ablation lesions placed.
Using the pulsed field ablation catheter, the catheter was placed on the posterior wall and moved around the posterior wall to have adequate contact and ablations were placed isolating the posterior wall.
Cardioversion:
Once the PV isolation was achieved, decision was made to proceed with cardioversion. A 200 J biphasic shock was applied on the rashad posterior Zoll patches and sinus rhythm was achieved. No significant pause noted.
EPS and Confirmation of the PVI and bidirectional block:
Following achievement of entrance block at the pulmonary veins, pacing from the HD catheter in each of the four veins at 10 milliamps for 2 milliseconds showed entrance and exit block. All PVI were rechecked at the end of the case and remained
isolated. Entrance and exit block were demonstrated in all veins.
Post ablation Electroanatomic mapping:
Once ablation was completed, the EAM of the LA was done again in sinus rhythm with excellent demarcation of LA myocardium and isolated antral tissue.
The ROME had healthy signals and was not isolated.
Procedure End
ICE study was done again that showed no epicardial accumulation. No complications noted.
Following the completion of the EP study, catheters were removed. Protamine 40 mg was given at the end of the procedure and ACT was checked repeatedly. The sheaths were removed and hemostasis achieved with �Figure of 8� and manual compression after
acceptable ACT is achieved.
Total Number PFA ablation lesions
74
Left atrial Pressure:
Pre-ablation: Mean LA pressure was 11mmHg
Post-ablation: Mean LA pressure was 14mmHg
Mean RA pressure was 7 mmHg.
Estimated Blood loss:
<10 cc
Specimens Removed:
None.
Implants / Devices:
None
Urine output:
None
Packs / Drains/ Tubes:
None
Instrument / Sponge Count Correct:
Yes
Complications of the Procedure:
None
Condition of Patient at Time of Transfer:
Hemodynamically stable with no neurological or vascular compromise.
Summary:
Successful atrial fibrillation ablation with Pulsed Field approach for pulmonary vein isolation, roof dependent flutter ablation and posterior wall isolation. .
--- NOTE | 2025-06-17 13:57 | W.PN.UPDATE ---
Update Note
Progress Note Update
Pt seen post PFA. Right groin site without ht/bleeding, oob ambulating, urinating without difficulty. Post EKG NSR 70, no acute changes. Resume eliquis tonight. Followup at [facility] as scheduled. Home today if groin site/tele remain stable.
== END 2025-06-17 14:20 | disposition home or self-care (01) ==
LOC: CATH 05:54
PROVIDERS: ATTENDING PHYSICIAN Internal Medicine Cardiovascular Disease; FAMILY PHYSICIAN Internal Medicine; OTHER PHYSICIAN Student in an Organized Health Care Education/Training Program
DX: I48.19 Other persistent atrial fibrillation (principal); I25.10 Atherosclerotic heart disease of native coronary artery without angina pectoris; I10 Essential (primary) hypertension; E78.5 Hyperlipidemia, unspecified; Z95.5 Presence of coronary angioplasty implant and graft; E66.9 Obesity, unspecified; Z68.32 Body mass index [BMI] 32.0-32.9, adult; Z87.891 Personal history of nicotine dependence; Z79.899 Other long term (current) drug therapy; Z79.01 Long term (current) use of anticoagulants; I48.92 Unspecified atrial flutter
CPT/HCPCS: C1732; C1894; C1892; C1759; C1769; 36415; 80053; 85025; 85347; 86850; 86900; 86901; 93005; 93656; 93657; C1733; C1766

== ENCOUNTER → 2025-06-24 08:04 | Outpatient (REF) | payer OTHER, SELFPAY | LOC: RCS 08:04 | PROVIDERS: ATTENDING PHYSICIAN Student in an Organized Health Care Education/Training Program; FAMILY PHYSICIAN Internal Medicine | DX: I48.91 Unspecified atrial fibrillation (principal) | CPT/HCPCS: 93005 ==

== ENCOUNTER 2025-07-01 09:27 | Day surgery (SDC) | payer OTHER, SELFPAY | END 2025-07-01 11:16 | disposition home or self-care (01) | LOC: CATH 09:27 | PROVIDERS: ATTENDING PHYSICIAN Internal Medicine Cardiovascular Disease; FAMILY PHYSICIAN Internal Medicine; OTHER PHYSICIAN Student in an Organized Health Care Education/Training Program | DX: I48.19 Other persistent atrial fibrillation (principal); I10 Essential (primary) hypertension; E78.5 Hyperlipidemia, unspecified; I25.10 Atherosclerotic heart disease of native coronary artery without angina pectoris; Z95.5 Presence of coronary angioplasty implant and graft; E66.9 Obesity, unspecified; Z68.32 Body mass index [BMI] 32.0-32.9, adult; Z87.891 Personal history of nicotine dependence; G47.33 Obstructive sleep apnea (adult) (pediatric); Z79.01 Long term (current) use of anticoagulants; Z79.899 Other long term (current) drug therapy | CPT/HCPCS: 92960; 93005 ==